=== PATIENT | female | born 1930 | race Two or more races ===

== ENCOUNTER 2020-11-21 08:44 | Inpatient (IN) | payer OTHER ==
[~2020-11-21] VITALS: Ht 160 cm; Wt 54.6 kg
[2020-11-21] MEDS ORDERED: KETOROLAC TROMETH 60MG/2ML VIAL IM ONE (10:15)
[2020-11-21] MEDS ORDERED: KETOROLAC TROMETH 30 MG/ML 1ML VIAL IV ONE (10:30)
[2020-11-21 10:43] LABS: Basophils # (auto) 0.1 10 ^3/uL (0-0.2); Basophils % (auto) 0.4 % (0.0-2.0); Eosinophils # (auto) 0 10 ^3/uL (0-0.8); Hematocrit 37.2 % (36.0-46.0); Lymphocytes # (auto) 0.7 10 ^3/uL (0.4-5.4); Mean Corpuscular Hemoglobin 31.7 pg (28.0-32.0); Mean Corpuscular Hgb Conc. 32.3 g/dL (32.0-36.0); Mean Corpuscular Volume 98.1 fL (80.0-100.0); Monocytes # (auto) 0.7 10 ^3/uL (0-1.3); Monocytes % (auto) 5.2 % (0.0-12.0); Neutrophils # (auto) 12.5 10 ^3/uL (1.6-8.6); Neutrophils % (auto) 89.4 % (37.0-80.0); Nucleated Red Blood Cells % 0.1 %; Platelet Count (auto) 267 10^3/uL (140-450); Red Blood Cells 3.79 10^6/uL (4.0-5.20); Red Cell Distribution Width 15.8 % (11.8-14.3)
[2020-11-21 10:48] LABS: Albumin 3.7 g/dL (3.4-5.0); Anion Gap 8 (5-15); Blood Urea Nitrogen 10 mg/dL (7-18); Calcium 9.1 mg/dL (8.5-10.1); Carbon Dioxide 23 mmol/L (21-32); Chloride 108 mmol/L (98-107); Glucose 128 mg/dL (74-106); Potassium 3.8 mmol/L (3.5-5.1); Sodium 139 mmol/L (136-145)
[2020-11-21 10:52] LABS: INR 0.99 (0.9-1.15); Partial Thromboplastin Time 26.5 sec (23.0-31.2)
[2020-11-21 10:54] LABS: Alanine Aminotransferase 24 U/L (13-56); Alkaline Phosphatase 79 U/L (45-117); Aspartate Aminotransferase 24 U/L (15-37); BUN/Creatinine Ratio 12.8; Bilirubin, Total 0.7 mg/dL (0.2-1.0); GFR African American 90 mL/min; GFR Non-African American 74 mL/min; Total Protein 8.1 g/dL (6.4-8.2)
[2020-11-21 13:57] LABS: Urine Bacteria NONE SEEN /hpf (None Seen); Urine Blood Negative /uL (Negative); Urine WBC <1 /hpf (0 - 5)
[2020-11-21] MEDS ORDERED: ONDANSETRON HCL 4 MG/2 ML VIAL IV ONE (15:00)
[2020-11-21] MEDS ORDERED: HYDROmorphone HCL 2 MG/ML VL IV ONE (15:00)
[2020-11-21] MEDS ORDERED: DOCUSATE SOD 100 MG CAP PO PRN (16:00)
[2020-11-21] MEDS ORDERED: ONDANSETRON HCL 4 MG/2 ML VIAL IV PRN (20:15)
[2020-11-21] MEDS ORDERED: HYDROcodone-ACET 7.5/325MG TAB PO PRN (23:00)
[2020-11-21] MEDS ORDERED: cloNIDine HCL 0.1 MG TAB PO PRN (23:00)
[2020-11-21] MEDS ORDERED: hydrALAZINE HCL 20 MG/ML VL IV PRN (23:45)
[2020-11-22] MEDS ORDERED: HYDROcodone-ACET 10/325MG TAB PO ONE (03:30)
[2020-11-22 05:14] VITALS: BP 92/43
[2020-11-22 06:31] VITALS: BP 90/43
[2020-11-22 08:00] VITALS: BP 90/43
[2020-11-22] MEDS ORDERED: D5W/SOD CHL 0.45% 250 ML IV ONE (10:15)
[2020-11-22 10:40] LABS: BUN/Creatinine Ratio 19.6; Basophils # (auto) 0 10 ^3/uL (0-0.2); Basophils % (auto) 0.5 % (0.0-2.0); Calcium 8.8 mg/dL (8.5-10.1); Eosinophils # (auto) 0 10 ^3/uL (0-0.8); Eosinophils % (auto) 0.3 % (0.0-7.0); Hematocrit 31.7 % (36.0-46.0); Hemoglobin 10.5 g/dL (12.2-16.2); Lymphocytes # (auto) 0.6 10 ^3/uL (0.4-5.4); Lymphocytes % (auto) 7.3 % (10.0-50.0); Mean Corpuscular Hemoglobin 32.8 pg (28.0-32.0); Mean Corpuscular Hgb Conc. 33.2 g/dL (32.0-36.0); Mean Corpuscular Volume 98.7 fL (80.0-100.0); Monocytes # (auto) 0.4 10 ^3/uL (0-1.3); Neutrophils # (auto) 7.3 10 ^3/uL (1.6-8.6); Neutrophils % (auto) 86.9 % (37.0-80.0); Nucleated Red Blood Cells % 0.2 %; Platelet Count (auto) 217 10^3/uL (140-450); Potassium 4.5 mmol/L (3.5-5.1); Red Blood Cells 3.21 10^6/uL (4.0-5.20); Red Cell Distribution Width 15.7 % (11.8-14.3); White Blood Cell 8.4 10^3/uL (4.4-10.8)
[2020-11-22] MEDS ORDERED: hydrALAZINE HCL 20 MG/ML VL IV PRN (11:30)
[2020-11-22] MEDS ORDERED: SODIUM CHLORIDE 0.9% 1,000 ML IV ONE (11:30)
[2020-11-22] MEDS ORDERED: OXYB5TAB61 PO (12:12)
[2020-11-22] MEDS ORDERED: FER325T PO (12:12)
[2020-11-22] MEDS ORDERED: ISOS5TAB PO (12:12)
[2020-11-22] MEDS ORDERED: SIMV-13 PO (12:12)
[2020-11-22] MEDS ORDERED: LEVO75TA6 PO (12:12)
[2020-11-22] MEDS ORDERED: ASPI-498 PO (12:12)
[2020-11-22] MEDS ORDERED: DONE5TAB80 PO (12:12)
[2020-11-22] MEDS ORDERED: LOSA-69 PO (12:12)
[2020-11-22 13:10] VITALS: BP 118/59
[2020-11-22] MEDS ORDERED: D5W/SOD CHL 0.45% 1,000 ML IV SCH (14:00)
[2020-11-22] MEDS ORDERED: BUPIVACAINE 0.25% INJ 50ML VIAL ONE (14:24)
[2020-11-22] MEDS ORDERED: TRANEXAMIC ACID 10 ML ONE (14:24)
[2020-11-22] MEDS ORDERED: KETOROLAC TROMETH 30 MG/ML 1ML VIAL ONE (14:27)
[2020-11-22] MEDS ORDERED: CLINDAMYCIN 600MG IV 50 ML IV ONE (14:38)
[2020-11-22] MEDS ORDERED: fentaNYL CITRATE 100 MCG/2 ML VL ONE (14:46)
[2020-11-22] MEDS ORDERED: MIDAZOLAM HCL 1MG/1ML-2 ML VIAL ONE ×2 (14:46→15:41)
[2020-11-22] MEDS ORDERED: TETRACAINE 1% INJ 2 ML VIAL IJ ONE (14:48)
[2020-11-22] MEDS ORDERED: VANCOMYCIN HCL 1000 MG VL ONE (14:49)
[2020-11-22] MEDS ORDERED: DexAMETHasone SOD PHOS 10MG/1ML VIAL INJ ONE (14:52)
[2020-11-22] MEDS ORDERED: PROPOFOL 10 MG/ML 20 ML IV ONE (14:52)
[2020-11-22] MEDS ORDERED: PHENYLEPHRINE HCL 10 MG/ML VL ONE (15:26)
[2020-11-22] MEDS ORDERED: SODIUM CHLORIDE LOCK 10 ML ONE (15:26)
[2020-11-22] MEDS ORDERED: HYDROmorphone HCL 2 MG/ML VL IV PRN ×2 (15:45)
[2020-11-22] MEDS ORDERED: ONDANSETRON HCL 4 MG/2 ML VIAL IV PRN (15:45)
[2020-11-22] MEDS ORDERED: ePHEDrine SULFATE 50 MG/ML AMP IV PRN (15:45)
[2020-11-22] MEDS: LACTATED RINGER'S 1,000 ML IV SCH (16:30)
[2020-11-22] MEDS: CLINDAMYCIN 600MG IV 50 ML IV SCH (18:50)
[2020-11-22] MEDS ORDERED: DOCUSATE SOD 100 MG CAP PO PRN (19:30)
[2020-11-22 22:00] VITALS: BP 106/54
[2020-11-22] MEDS: SODIUM CHLOR 0.9% PF (SALINE LOCK) 10ML VIAL/SYR IV SCH (22:00)
[2020-11-23] MEDS: ACETAMINOPHEN 325 MG TAB PO PRN ×3 (00:07→14:50)
[2020-11-23] MEDS: CLINDAMYCIN 600MG IV 50 ML IV SCH ×2 (00:09→05:47)
[2020-11-23] MEDS: LACTATED RINGER'S 1,000 ML IV SCH ×2 (02:30→12:30)
[2020-11-23 05:00] VITALS: BP 103/55
[2020-11-23] MEDS: SODIUM CHLOR 0.9% PF (SALINE LOCK) 10ML VIAL/SYR IV SCH ×2 (05:48→14:00)
[2020-11-23 06:58] LABS: Basophils # (auto) 0 10 ^3/uL (0-0.2); Basophils % (auto) 0.4 % (0.0-2.0); Eosinophils # (auto) 0 10 ^3/uL (0-0.8); Eosinophils % (auto) 0.5 % (0.0-7.0); Hematocrit 29.1 % (36.0-46.0); Hemoglobin 9.9 g/dL (12.2-16.2); Lymphocytes # (auto) 0.5 10 ^3/uL (0.4-5.4); Lymphocytes % (auto) 7.6 % (10.0-50.0); Mean Corpuscular Hemoglobin 33.6 pg (28.0-32.0); Mean Corpuscular Hgb Conc. 34.1 g/dL (32.0-36.0); Mean Corpuscular Volume 98.6 fL (80.0-100.0); Monocytes # (auto) 0.5 10 ^3/uL (0-1.3); Monocytes % (auto) 6.6 % (0.0-12.0); Neutrophils # (auto) 5.8 10 ^3/uL (1.6-8.6); Neutrophils % (auto) 84.9 % (37.0-80.0); Platelet Count (auto) 195 10^3/uL (140-450); Red Blood Cells 2.95 10^6/uL (4.0-5.20); Red Cell Distribution Width 15.3 % (11.8-14.3); White Blood Cell 6.8 10^3/uL (4.4-10.8)
[2020-11-23 07:00] LABS: % Iron Saturation 4.7 % (15-50)
[2020-11-23] MEDS ORDERED: LEVOTHYROXINE SODIUM 25 MCG TAB PO SCH (07:00)
[2020-11-23 07:04] LABS: Albumin 2.8 g/dL (3.4-5.0); Calcium 8.3 mg/dL (8.5-10.1); Potassium 4.1 mmol/L (3.5-5.1)
[2020-11-23 07:08] LABS: BUN/Creatinine Ratio 29.6; Bilirubin, Total 0.6 mg/dL (0.2-1.0); Total Protein 6.5 g/dL (6.4-8.2)
[2020-11-23 08:00] VITALS: BP 111/50
[2020-11-23] MEDS: FERROUS SULFATE 325 MG TAB PO SCH ×3 (08:07→18:00)
[2020-11-23] MEDS ORDERED: OXYBUTYNIN CHL 5 MG TAB PO SCH (10:00)
[2020-11-23] MEDS ORDERED: ASPirin-EC 81 mg tab PO SCH (10:00)
[2020-11-23] MEDS ORDERED: DONEPEZIL HYDROCHLORIDE 5 MG TAB PO SCH (10:00)
[2020-11-23] MEDS ORDERED: ENOXAPARIN SOD 30 MG/0.3 ML SYRINGE SC SCH (10:00)
[2020-11-23 16:00] VITALS: BP 133/58
[2020-11-23 16:57] VITALS: BP 111/50
[2020-11-23 22:00] VITALS: BP 103/69
[2020-11-23] MEDS ORDERED: ATORVASTATIN 20 MG TAB PO SCH (22:00)
== END 2020-11-23 23:42 | DRG 522 ==
LOC: ER 08:44 → EDBD 08:44 → OVERFLOW 15:55 → CENTRAL 11-22 05:14
PROVIDERS: ADMIT Internal Medicine; ATTEND Internal Medicine
PROC: 0SRR01Z Replacement of Right Hip Joint, Femoral Surface with Metal Synthetic Substitute, Open Approach (ICD-10-PCS; principal; 2020-11-23)
DX: S72.011A Unspecified intracapsular fracture of right femur, initial encounter for closed fracture (principal); N17.9 Acute kidney failure, unspecified; D50.9 Iron deficiency anemia, unspecified; E03.9 Hypothyroidism, unspecified; E78.5 Hyperlipidemia, unspecified; F03.90 Unspecified dementia, unspecified severity, without behavioral disturbance, psychotic disturbance, mood disturbance, and anxiety; I10 Essential (primary) hypertension; Z83.3 Family history of diabetes mellitus; W18.30XA Fall on same level, unspecified, initial encounter; Y93.89 Activity, other specified; Y92.89 Other specified places as the place of occurrence of the external cause; Y99.8 Other external cause status; Z88.1 Allergy status to other antibiotic agents; Z88.5 Allergy status to narcotic agent; Z88.0 Allergy status to penicillin; Z20.822 Contact with and (suspected) exposure to COVID-19
CPT/HCPCS: 36415; 70450; 71045; 72170; 72192; 73501; 80048; 80053; 81001; 83540; 83550; 84484; 85025; 85610; 85730; 86850; 86900; 86901; 87426; 93005; 93306; 96365; 96366; 96375; A4565; G0378; J1100; J1885; J2250; J2405; J2704; J3490